=== PATIENT | female | born 1960 | race Caucasian/White ===

== ENCOUNTER 2023-09-13 04:50 | Emergency (ER) | payer BC, SELFPAY ==
[2023-09-13 04:53] VITALS: BP 151/86
--- NOTE | 2023-09-13 04:59 | ED.GENMED ---
History of Present Illness
<MARKIE Duffy - Last Filed: 09/13/23 06:06>
General
Chief Complaint: Flank Pain
Source: patient
Exam Limitations: none
Time Seen by Provider: 09/13/23 04:59
Nursing documentation reviewed up to this point in time: agreed with
History of Present Illness
History of Present Illness:
63 year old female presents for evaluation of L flank pain x 5 hours. Pt was awoken from sleep at approximately 0000 with 10/10 sharp left flank pain with associated N/V. Pt endorses 10+ bouts of vomiting since the onset of her flank pain. She took
2 tabs of Ibuprofen with no relief. Pt has not experienced these symptoms in the past. She denies dysuria, hematuria, increased frequency and urgency, diarrhea, fever, and chills. Pt currently unable to lay still in bed due to the pain.
Review of Systems
<MARKIE Duffy - Last Filed: 09/13/23 06:06>
Review of Systems
Allergies reviewed?: Yes
Constitutional: Reports no symptoms
EENT: Reports no symptoms
Respiratory: Reports no symptoms
Cardiac: Reports no symptoms
ABD/GI: Reports nausea and vomiting
: Reports flank pain
Musculoskeletal: Reports no symptoms
Skin: Reports no symptoms
Neurological: Reports no symptoms
Endocrine: Reports no symptoms
Hematologic/Lymphatic: Reports no symptoms
Psychiatric: Reports no symptoms
Phy Exam
<MARKIE Duffy - Last Filed: 09/13/23 06:06>
General Physical Exam
General Presentation: moderate distress
General age: appears stated age
General Skin: warm
General Habitus: normal
General Mental: alert
General Hydration: appears well hydrated
Cardiovascular Exam
Cardiovascular Exam: regular rate/rhythm and no murmur
Pulmonary Exam
Pulmonary Exam: lungs clear and no respiratory distress
Gastrointestinal Exam
Gastrointestinal Exam: normal bowel sounds, non tender, non distended and cva tenderness (left side )
Neurological Exam
Neurological Exam: alert and oriented x3
Course
<ST CliveKY - Last Filed: 09/13/23 06:06>
Orders/Labs/Results
Orders:
Orders
09/13/23 05:15
CT Abd/pel Without Iv Or Oral Urgent
Comment:
Reason For Exam: L flank pain
Ondansetron Injectable [Zofran] 4 mg .ROUTE .STK-MED ONE
09/13/23 05:18
Ondansetron Injectable [Zofran] 4 mg IV NOW STA
09/13/23 05:20
CBC/With Diff [Complete Blood Count/With Diff] Urgent
09/13/23 05:22
Ketorolac [Toradol] 30 mg .ROUTE .STK-MED ONE
09/13/23 05:23
Ketorolac [Toradol] 30 mg IV NOW STA
09/13/23 05:33
HYDROmorphone [Dilaudid] 0.5 mg .ROUTE .STK-MED ONE
09/13/23 05:35
HYDROmorphone [Dilaudid] 0.5 mg IV NOW STA
09/13/23 05:39
Comprehensive Metabolic Panel Urgent
Comment: REDRAW
09/13/23 06:15
Urinalysis Reflex To Culture Urgent
Date Specimen was Collected: 09/13/23
Time Specimen was Collected: 06:13
Abnormal Lab Results
09/13/23 09/13/23 09/13/23
05:20 05:39 06:15
WBC 11.9 H 10^3/uL
(4.8-10.8)
RBC 4.12 L 10^6/uL
(4.20-5.40)
Hct 36.1 L %
(37.0-47.0)
MCH 31.3 H pg
(27.0-31.0)
MPV 10.6 H fL
(7.4-10.4)
Abs Immat Gran (auto) 0.1 H 10^3/uL
(0-0.05)
Absolute Neuts (auto) 9.5 H 10^3/uL
(1.4-6.5)
Absolute Monos (auto) 0.9 H 10^3/uL
(0.1-0.6)
Neutrophils % 79.5 H %
(42.2-75.2)
Lymphocytes % 11.7 L %
(20.5-51.1)
Sodium 132 L mmol/L
(135-145)
Carbon Dioxide 21 L mmol/L
(22-30)
BUN 19 H mg/dl
(7-17)
Glucose 149 H mg/dl
(70-99)
Urine Ketones 2+ A
(Negative)
09/13/23 05:20
09/13/23 05:39
Vital Signs
Initial and Last Documented VS:
Initial Vital Signs
Temp Pulse Resp BP Pulse Ox
97.9 F 82 28 151/86 100
09/13/23 04:53 09/13/23 04:53 09/13/23 04:53 09/13/23 04:53 09/13/23 04:53
Last Documented Vital Signs
Temp Pulse Resp BP Pulse Ox
97.9 F 82 28 151/86 100
09/13/23 04:53 09/13/23 04:53 09/13/23 04:53 09/13/23 04:53 09/13/23 04:53
<Osito Orantes, DO - Last Filed: 09/13/23 06:59>
Orders/Labs/Results
Orders:
Orders
09/13/23 05:15
CT Abd/pel Without Iv Or Oral Urgent
Comment:
Reason For Exam: L flank pain
Ondansetron Injectable [Zofran] 4 mg .ROUTE .STK-MED ONE
09/13/23 05:18
Ondansetron Injectable [Zofran] 4 mg IV NOW STA
09/13/23 05:20
CBC/With Diff [Complete Blood Count/With Diff] Urgent
09/13/23 05:22
Ketorolac [Toradol] 30 mg .ROUTE .STK-MED ONE
09/13/23 05:23
Ketorolac [Toradol] 30 mg IV NOW STA
09/13/23 05:33
HYDROmorphone [Dilaudid] 0.5 mg .ROUTE .STK-MED ONE
09/13/23 05:35
HYDROmorphone [Dilaudid] 0.5 mg IV NOW STA
09/13/23 05:39
Comprehensive Metabolic Panel Urgent
Comment: REDRAW
09/13/23 06:15
Urinalysis Reflex To Culture Urgent
Date Specimen was Collected: 09/13/23
Time Specimen was Collected: 06:13
Abnormal Lab Results
09/13/23 09/13/23 09/13/23
05:20 05:39 06:15
WBC 11.9 H 10^3/uL
(4.8-10.8)
RBC 4.12 L 10^6/uL
(4.20-5.40)
Hct 36.1 L %
(37.0-47.0)
MCH 31.3 H pg
(27.0-31.0)
MPV 10.6 H fL
(7.4-10.4)
Abs Immat Gran (auto) 0.1 H 10^3/uL
(0-0.05)
Absolute Neuts (auto) 9.5 H 10^3/uL
(1.4-6.5)
Absolute Monos (auto) 0.9 H 10^3/uL
(0.1-0.6)
Neutrophils % 79.5 H %
(42.2-75.2)
Lymphocytes % 11.7 L %
(20.5-51.1)
Sodium 132 L mmol/L
(135-145)
Carbon Dioxide 21 L mmol/L
(22-30)
BUN 19 H mg/dl
(7-17)
Glucose 149 H mg/dl
(70-99)
Urine Ketones 2+ A
(Negative)
09/13/23 05:20
09/13/23 05:39
Vital Signs
Initial and Last Documented VS:
Initial Vital Signs
Temp Pulse Resp BP Pulse Ox
97.9 F 82 28 151/86 100
09/13/23 04:53 09/13/23 04:53 09/13/23 04:53 09/13/23 04:53 09/13/23 04:53
Last Documented Vital Signs
Temp Pulse Resp BP Pulse Ox
97.9 F 82 28 151/86 100
09/13/23 04:53 09/13/23 04:53 09/13/23 04:53 09/13/23 04:53 09/13/23 04:53
<MARKIE Duffy - Last Filed: 09/13/23 06:06>
MDM/Problems Addressed
Differential Diagnosis Includes:
nephrolithiasis, UTI
<MARKIE Duffy - Last Filed: 09/13/23 06:06>
*Critical Care Note
Total Time (30-74mins, 75-104mins- exclusive of procedures): Not Applicable
<Osito Orantes DO - Last Filed: 09/13/23 06:59>
*Critical Care Note
Total Time (30-74mins, 75-104mins- exclusive of procedures): Not Applicable
<Osito Orantes DO - Last Filed: 09/13/23 06:59>
Update Note
Update Note:
Exams: CT Abd/pel Without Iv Or Oral
CT Abd/pel Without Iv Or Oral 09/13/2023 5:17 AM
Indication: L flank pain.
Comparison: None.
Technique: Axial CT of the abdomen, and pelvis was performed from the top of the hemidiaphragms to the inferior osseous pelvis without intravenous contrast. 2-D reformats were obtained. Automatic exposure control radiation dose reduction technology
was utilized.
Findings:
Evaluation is limited by lack of intravenous contrast.
Visualized portion of the lung bases are unremarkable.
4.5 mm calculus of the left ureterovesical junction with associated upstream mild to moderate left hydroureteronephrosis.
Additional tiny nonobstructing left renal calculi.
The liver, spleen, right kidney, adrenal glands and pancreas are unremarkable. Gallbladder present.
No abdominal aortic aneurysm.
No enlarged lymph nodes, free fluid, or free air. The bowel is without evidence of obstruction or adjacent inflammatory changes. Normal appendix. Mild diffuse colonic stool burden.
Bladder unremarkable.
No suspicious osseous lesions.
IMPRESSION:
4.5 mm calculus of the left ureterovesical junction with associated upstream mild to moderate left hydroureteronephrosis.
ED Attending Note
<MARKIE Duffy - Last Filed: 09/13/23 06:06>
-
Portions of this chart may have been created with voice recognition software.� Occasional wrong word or��sound alike� substitutions may have occurred due to the inherent limitations of voice recognition software.
<Osito Orantes DO - Last Filed: 09/13/23 06:59>
ED Attending Note
Patient seen and examined by attending physician: Yes
I performed the substantive portion of visit, reviewed & personally made and approve the management plan that is documented in note by myself or MIRIAN.: Yes
ED Attending Note:
Pleasant 63-year-old female that awakened tonight around midnight with left-sided flank pain. Last 5 hours she has been unable to sleep. She did have some nausea and vomiting when the pain is worse. Denies fever or chills. She took ibuprofen but
did not get much relief. Patient has had UTIs in the past and states that this feels different. She denies any typical urinary symptoms. Denies chest pain or shortness of breath. Patient was seen in conjunction with the PA student. I have
reviewed and agree with the history and treatment plan presented. On my independent physical exam, patient is awake, alert, and oriented x3, minimal to moderate acute distress. Just received a second dose of pain medication. No respiratory
distress. Moves all 4 extremities. Skin is warm and dry.
Differentials UTI versus kidney stone
Plan would be to get CT scan.
Discharge Plan
Departure
Patient Disposition: Home (Routine Discharge)
Date of Disposition: 09/13/23
Time of Disposition: 06:58
Patient with high blood pressure during this ER visit?: Yes
Condition: Good
Discharge Problem:
Kidney stone
Instructions: Kidney Stones (DC), Flank Pain (DC), How to Strain Your Urine, Narcotic Pain Medication
Prescriptions:
New
oxycodone-acetaminophen [Percocet] 5-325 mg Tablet
1 tab PO Q6HPRN PRN (Reason: pain) Qty: 10 0RF
tamsulosin [Flomax] 0.4 mg Capsule
0.4 mg PO DAILY Qty: 7 0RF
diclofenac sodium 75 mg tablet,delayed release (DR/EC)
75 mg PO BID Qty: 10 0RF
Referrals:
Kal Epstein MD [Active] - As needed
NONE,* [Active] -
Activity Restrictions/Additional Instructions:
Your prescriptions were sent electronically to the pharmacy that you specified.
It was a pleasure meeting you and taking part in your care. We hope for your continued healing and wellness.
Please read discharge instructions in their entirety. However, they are for general education and may not describe your exact diagnosis at discharge. Information on your ER visit and medical conditions were discussed with you along with appropriate
follow up information...
If indicated, please take your medications as instructed and indicated on discharge paperwork.
Please schedule a follow up appointment as directed. Call to schedule an appointment
Please return to the emergency department with ANY change in, persisting, or worsening of symptoms. If any of your symptoms do not improve, or persist, or become more severe within 6-12 hours, please return to the emergency department for further
care.
Please return to the emergency department if you develop a headache, neck pain/stiffness, fever greater than 100.4F, chest pain, shortness of breath, persistent nausea, vomiting, slurred speech, difficulty walking, numbness/tingling, weakness, signs
of infection or any other symptoms that are worrisome to you.
If you have any questions or concerns please do not hesitate to call the Hospital at or E-mail me directly at [email or web address]
Interventions
Interventions:
*Risk Screen - Suicide Last Done: 09/13/23 04:58
*General Assessment Last Done: 09/13/23 04:53
*Neglect/Abuse Screening Last Done: 09/13/23 04:53
ED- Fall Risk Assessment Last Done: 09/13/23 04:53
*ED COVID-19 Vaccine History Last Done: 09/13/23 04:53
[place]-Wcenct-Ggcohbdams Assessment Last Done: 09/13/23 05:30
ED-Female Genitourinary Assessment Last Done: 09/13/23 05:30
Discharge Date and Time
Print Language: [id number]
[2023-09-13] MEDS: ZOFRAN 4 MG IV ×2 (05:18→07:05)
[2023-09-13] MEDS: TORADOL 30 MG IV (05:23)
[2023-09-13 05:25] LABS: % Basophils 0.7 % (0-2); % Eosinophils 0.3 % (0-6); % Immature Granulocytes 0.5 % (0-0.5); % Lymphocytes 11.7 % (20.5-51.1); % Monocytes 7.3 % (1.7-9.3); % Neutrophils 79.5 % (42.2-75.2); Absolute Basophils 0.1 10^3/uL (0-0.2); Absolute Immature Granulocytes 0.1 10^3/uL (0-0.05); Absolute Lymphocytes 1.4 10^3/uL (1.2-3.4); Absolute Monocytes 0.9 10^3/uL (0.1-0.6); Absolute Neutrophils 9.5 10^3/uL (1.4-6.5); Hematocrit 36.1 % (37.0-47.0); Hemoglobin 12.9 g/dL (12.0-16.0); Mean Corp Hgb Conc. 35.7 g/dL (33.0-37.0); Mean Corpuscular Hgb 31.3 pg (27.0-31.0); Mean Corpuscular Volume 87.6 fL (81.0-99.0); Mean Platelet Volume 10.6 fL (7.4-10.4); Nucleated Red Blood Cells % 0 %; Platelet Count 226 10^3/uL (130-400); Red Blood Cell Count 4.12 10^6/uL (4.20-5.40); Red Cell Dist. Width 12.3 % (11.5-14.5); White Blood Cell Count 11.9 10^3/uL (4.8-10.8)
[2023-09-13] MEDS: DILAUDID 0.5 MG IV ×2 (05:35→07:11)
[2023-09-13 06:02] LABS: ALT (SGPT) 20 U/L (0-35); AST (SGOT) 33 U/L (14-36); Albumin 4.9 g/dl (3.5-5.0); Alkaline Phosphatase 64 U/L (38-126); Blood Urea Nitrogen 19 mg/dl (7-17); Calcium 10.2 mg/dl (8.4-10.2); Carbon Dioxide 21 mmol/L (22-30); Chloride 100 mmol/L (98-107); Glucose 149 mg/dl (70-99); Potassium 4.1 mmol/L (3.5-5.1); Sodium 132 mmol/L (135-145); Total Bilirubin 0.6 mg/dl (0.2-1.3); Total Protein 6.9 g/dl (6.3-8.2); eGFR > 60.00
[2023-09-13 06:53] LABS: Urine Albumin Negative (Neg - Trace); Urine Bilirubin Negative (Negative); Urine Character Slightly Cloudy (Clear); Urine Color Yellow; Urine Glucose Negative (Negative); Urine Ketone 2+ (Negative); Urine Leukocyte Negative (Negative); Urine Nitrite Negative (Negative); Urine Occult Blood Negative (Negative); Urine Urobilinogen Negative (Neg - 1+)
[2023-09-13 07:19] VITALS: BP 136/80
[2023-09-13] MEDS: PERCOCET 5/325 1 TABLET PO (08:00)
[2023-09-13 08:09] VITALS: BP 104/57
== END 2023-09-13 08:19 | disposition home or self-care (01) ==
LOC: EMR 04:50
PROVIDERS: EMERGENCY PHYSICIAN Student in an Organized Health Care Education/Training Program; FAMILY PHYSICIAN Family Medicine
DX: N13.2 Hydronephrosis with renal and ureteral calculous obstruction (principal); R03.0 Elevated blood-pressure reading, without diagnosis of hypertension
CPT/HCPCS: 99284; 96374; 96375 ×2; 96376 ×2; 74176; 80053; 81003; 85025

== ENCOUNTER → 2023-09-21 15:43 | Outpatient (REF) | payer BC, SELFPAY | LOC: RAD 15:43 | PROVIDERS: ATTENDING PHYSICIAN Surgery; FAMILY PHYSICIAN Family Medicine | DX: N20.0 Calculus of kidney (principal) | CPT/HCPCS: 74018 ==

== ENCOUNTER → 2023-12-30 08:15 | Outpatient (REF) | payer BC, SELFPAY | LOC: WDC 08:15 | PROVIDERS: ATTENDING PHYSICIAN Nurse Practitioner Adult Health; FAMILY PHYSICIAN Family Medicine | DX: Z12.31 Encounter for screening mammogram for malignant neoplasm of breast (principal) | CPT/HCPCS: 77063; 77067 ==